=== PATIENT | female | born 1995 | race Caucasian/White ===

== ENCOUNTER 2018-02-05 18:46 | Emergency (ER) | payer SELFPAY ==
[~2018-02-05] VITALS: Ht 162.6 cm; Wt 93.0 kg
[2018-02-05 18:48] VITALS: BP 132/88
[2018-02-05 19:50] LABS: BASOPHILS # (AUTO) 0.06 x10^3/uL (0-0.3); BASOPHILS % (AUTO) 1 % (0-1); EOSINOPHILS # (AUTO) 0.21 x10^3/uL (0-0.8); EOSINOPHILS % (AUTO) 2 % (1-7); LYMPHOCYTES # (AUTO) 1.83 x10^3/uL (1-6.1); LYMPHOCYTES % (AUTO) 21 % (22-44); MD NO; MEAN CORPUSCULAR HEMOGLOBIN 29.7 pg (27.0-34.8); MEAN CORPUSCULAR HGB CONC 34.9 g/dL (32.4-35.8); MEAN CORPUSCULAR VOLUME 85.3 fL (80-100); MEAN PLATELET VOLUME 8.3 fL (7.4-10.4); MONOCYTES # (AUTO) 0.61 x10^3/uL (0-1.4); MONOCYTES % (AUTO) 7 % (2-9); NEUTROPHILS # (AUTO) 5.97 x10^3/uL (1.8-8.0); NEUTROPHILS % (AUTO) 69 % (42-75); PLATELET COUNT 249 x10^3/uL (130-400); RED BLOOD COUNT 4.56 x10^6/uL (3.82-5.3); RED CELL DISTRIBUTION WIDTH 12.8 % (9.6-15.2)
[2018-02-05 20:02] LABS: ALBUMIN 3.7 g/dL (3.4-5.0); ANION GAP 8 mmol/L (5-15); CALCIUM 8.8 mg/dL (8.5-10.1); CHLORIDE 106 mmol/L (98-107)
[2018-02-05 20:07] LABS: ALANINE AMINOTRANSFERASE 39 U/L (12-78); ALKALINE PHOSPHATASE 131 U/L (45-117); BILIRUBIN,TOTAL 0.4 mg/dL (0.2-1.0); CREATININE 0.73 mg/dL (0.55-1.02); TOTAL PROTEIN 7.3 g/dL (6.4-8.2)
== END 2018-02-05 20:22 | disposition home or self-care (01) ==
LOC: ED 19:04
DX: R60.0 Localized edema (principal)
CPT/HCPCS: 36415; 80053; 83880; 85025; 99284

== ENCOUNTER 2018-05-29 11:43 | Emergency (ER) | payer OTHER, MEDICAID ==
[~2018-05-29] VITALS: Ht 162.6 cm; Wt 91.5 kg
[2018-05-29 11:47] VITALS: BP 144/87
== END 2018-05-29 12:45 | disposition home or self-care (01) ==
LOC: ED 12:25
DX: H66.91 Otitis media, unspecified, right ear (principal); J20.9 Acute bronchitis, unspecified
CPT/HCPCS: 99283

== ENCOUNTER 2018-09-03 17:11 | Emergency (ER) | payer MEDICAID, OTHER ==
[~2018-09-03] VITALS: Ht 165.1 cm; Wt 98.0 kg
[2018-09-03 17:14] VITALS: BP 129/83
--- NOTE | 2018-09-03 17:48 | NUR ---
LUNCH RN: PT TAKEN FOR RAD
--- NOTE | 2018-09-03 18:03 | NUR ---
LOUISE RN: ALL RESULTS BACK AT THIS TIME
== END 2018-09-03 18:28 | disposition home or self-care (01) ==
LOC: ED 18:11
DX: H65.01 Acute serous otitis media, right ear (principal); B34.9 Viral infection, unspecified
CPT/HCPCS: 71046; 99283

== ENCOUNTER 2018-12-28 17:18 | Emergency (ER) | payer MEDICAID ==
[~2018-12-28] VITALS: Ht 160 cm; Wt 97.9 kg
[2018-12-28 17:20] VITALS: BP 142/84
[2018-12-28] MEDS ORDERED: FAMOTIDINE 20 MG TABLET ONE (17:40)
[2018-12-28] MEDS ORDERED: FAMOTIDINE 20 MG TABLET PO ONE (18:00)
[2018-12-28] MEDS ORDERED: hydrOXyzine 50MG TABLET PO ONE (18:00)
== END 2018-12-28 18:36 | disposition home or self-care (01) ==
LOC: ED 18:11
DX: L23.7 Allergic contact dermatitis due to plants, except food (principal)
CPT/HCPCS: 99284; J7512